=== PATIENT | male | born 1980 | race Caucasian/White ===

== ENCOUNTER 2016-12-06 14:01 | Emergency (ER) | payer OTHER ==
--- NOTE | 2016-12-06 15:15 | DIAGNOSTIC IMAGING REPORT ---
PROCEDURE: CT HEAD WITHOUT CONTRAST INDICATION: HEADACHE TECHNIQUE: Axial CT images were acquired through the head. Coronal and sagittal reformations were created. COMPARISON: None. FINDINGS: No intracranial hemorrhage or extraaxial fluid collections. Ventricles are normal in size, shape and position. There is no mass, mass effect or midline shift. The maldonado-white matter differentiation is normal. There is no edema. The calvarium is intact. There is a frontal ethmoid and right maxillary sinusitis. IMPRESSION: 1. Frontal, ethmoid and right maxillary sinusitis. 2. Findings discussed with Dr. Wolff at 03:[address] scans at this facility use dose modulation, iterative reconstruction, and/or weight-based dosing when appropriate to reduce radiation dose to as low as reasonably achievable.
--- NOTE | 2016-12-06 15:23 | ED ORDER SUMMARY ---
..... Patient: GREGG YO OrderSheet [facility] VisitID: [id number] [address] [place] [address] 36y, M Registration Date/Time: 12/06/2016 ORDER SHEET Weight: 77.1 kg (stated) Allergies: Aleve, Toradol, Motrin GENERAL ORDERS: CT Head wo Cont Urgent (14:32 12/06/2016 Elise Sandhu) (Ack 14:34 Jessy) (15:[facility] MEDICATION ORDERS: Acetaminophen PO 1,000 mg (NOW) (14:32 12/06/2016 Elise Sandhu) (Ack 14:41 [facility] (14:[facility] IV FLUIDS: ORDER SHEET NOTES: [Electronically signed by Randy Wolff Dr. (15:28 12/06/2016)] [Electronically signed by Zahra Cabrera (16:35 12/06/2016)] [Electronically locked/signed by Zahra Cabrera (16:35 12/06/2016)]
--- NOTE | 2016-12-06 15:23 | ED CLINICAL REPORT ---
Clinical Report - Physicians/Mid Levels [facility] [address] [place] [address] 12/06/2016 14:05 Patient: GREGG YO Time Seen: 14:10; initial patient contact. Arrived- By private vehicle. Historian- patient. HISTORY OF PRESENT ILLNESS Is still present and worsening. (worse since 4 days ago). Chief Complaint: HEADACHE. This started about 2 years ago. It was gradual in onset and has been intermittent. It is described as similar to previous headaches, throbbing and sharp. Located in the frontal region. No neck pain. Not located in the facial region. At its maximum, severity described as moderate. When seen in the E.D., severity described as moderate. Modifying factors: relieved by nothing. Not worsened by anything. No preceding symptoms, blurred vision, photophobia, associated nausea or numbness. No vomiting. Similar symptoms previously: Many times. Recent medical care: The patient was seen recently in a clinic (Took Azithromycin Tri pack, temporary relief.). REVIEW OF SYSTEMS No fever, ear pain or sore throat. He has had sinus pressure. All systems otherwise negative, except as recorded above. PAST HISTORY Back Pain. Headache. Medications: Tylenol Oral. Allergies: Aleve. Motrin. Toradol. SOCIAL HISTORY Never smoker. No alcohol use or drug use. ADDITIONAL NOTES The nursing notes have been reviewed. PHYSICAL EXAM Vital Signs: 12/06/2016 14:17 BP: 145/90. HR: 90. RR: 14. O2 saturation: 99%. Temp: 97.8 F. Have been reviewed. Hypertensive. Heart rate normal. Respiratory rate normal. Temperature normal. Oxygen saturation normal. Appearance: Alert. No acute distress. Head: Tenderness present to percussion/palpation of the sinuses: moderate right and left frontal tenderness. Eyes: Pupils equal, round and reactive to light. Eyes normal inspection. No photophobia. ENT: Ears normal. Pharynx normal. Neck: Normal inspection. Neck supple. Respiratory: No respiratory distress. Breath sounds normal. Neuro: Oriented X 3. Alert. Mood/affect normal. Speech normal. LABS, X-RAYS, AND EKG CT Head: (1. Frontal, ethmoid and right maxillary sinusitis.). Head CT performed without contrast. The study was independently viewed by me, interpreted by the radiologist and discussed with the radiologist. Prior studies were not available for comparison. PROGRESS AND PROCEDURES Disposition: Discharged home in good condition. Condition: good. CLINICAL IMPRESSION Chronic maxillary, ethmoidal and frontal sinusitis INSTRUCTIONS Prescription Medications: Augmentin 500 mg: take 1 tablet orally every 12 hours. No refill. Substitution is permissible. (for 21 days Disp # 42) Follow-up: Screening today revealed the patient's blood pressure to be in the hypertensive range. The patient should follow up with a primary care provider for blood pressure management. Follow-up with: Sergei Paredes MD, ENT, , [address], , [place], [id number] Follow up in about one week. Call for an appointment. (Electronically signed by Randy Wolff Dr. 12/06/2016 15:28)
--- NOTE | 2016-12-06 15:23 | ED CLINICAL REPORT ---
Clinical Report - Physicians/Mid Levels [facility] [address] [place] [address] 12/06/2016 14:05 Patient: GREGG YO Time Seen: 14:10; initial patient contact. Arrived- By private vehicle. Historian- patient. HISTORY OF PRESENT ILLNESS Is still present and worsening. (worse since 4 days ago). Chief Complaint: HEADACHE. This started about 2 years ago. It was gradual in onset and has been intermittent. It is described as similar to previous headaches, throbbing and sharp. Located in the frontal region. No neck pain. Not located in the facial region. At its maximum, severity described as moderate. When seen in the E.D., severity described as moderate. Modifying factors: relieved by nothing. Not worsened by anything. No preceding symptoms, blurred vision, photophobia, associated nausea or numbness. No vomiting. Similar symptoms previously: Many times. Recent medical care: The patient was seen recently in a clinic (Took Azithromycin Tri pack, temporary relief.). REVIEW OF SYSTEMS No fever, ear pain or sore throat. He has had sinus pressure. All systems otherwise negative, except as recorded above. PAST HISTORY Back Pain. Headache. Medications: Tylenol Oral. Allergies: Aleve. Motrin. Toradol. SOCIAL HISTORY Never smoker. No alcohol use or drug use. ADDITIONAL NOTES The nursing notes have been reviewed. PHYSICAL EXAM Vital Signs: 12/06/2016 14:17 BP: 145/90. HR: 90. RR: 14. O2 saturation: 99%. Temp: 97.8 F. Have been reviewed. Hypertensive. Heart rate normal. Respiratory rate normal. Temperature normal. Oxygen saturation normal. Appearance: Alert. No acute distress. Head: Tenderness present to percussion/palpation of the sinuses: moderate right and left frontal tenderness. Eyes: Pupils equal, round and reactive to light. Eyes normal inspection. No photophobia. ENT: Ears normal. Pharynx normal. Neck: Normal inspection. Neck supple. Respiratory: No respiratory distress. Breath sounds normal. Neuro: Oriented X 3. Alert. Mood/affect normal. Speech normal. LABS, X-RAYS, AND EKG CT Head: (1. Frontal, ethmoid and right maxillary sinusitis.). Head CT performed without contrast. The study was independently viewed by me, interpreted by the radiologist and discussed with the radiologist. Prior studies were not available for comparison. PROGRESS AND PROCEDURES Disposition: Discharged home in good condition. Condition: good. CLINICAL IMPRESSION Chronic maxillary, ethmoidal and frontal sinusitis INSTRUCTIONS Prescription Medications: Augmentin 500 mg: take 1 tablet orally every 12 hours. No refill. Substitution is permissible. (for 21 days Disp # 42) Follow-up: Screening today revealed the patient's blood pressure to be in the hypertensive range. The patient should follow up with a primary care provider for blood pressure management. Follow-up with: Sergei Paredes MD, ENT, , [address], , [place], [id number] Follow up in about one week. Call for an appointment. (Electronically signed by Randy Wolff Dr. 12/06/2016 15:28)
--- NOTE | 2016-12-06 15:23 | ED NURSING NOTES ---
Clinical Report - Nurses [facility] [address] [place] [address] 12/06/2016 14:05 Patient: GREGG YO TRIAGE Triage time 14:Dec 06 2016. Acuity: LEVEL 4. Chief Complaint: HEADACHE. 14:17 12/06/16. Alert. No acute distress. ( Pain at worst 10/10). SEPSIS SCREEN: Sepsis Screen. Negative (no infection suspected/documented). CASS COMA SCORE: [place] Coma Scale: 15- eyes open spontaneously (4); best verbal response- oriented x 4 (5); best motor response- obeys commands (6). --14:17 Zahra Cabrera 14:17 12/06/16. BP: 145/90. HR: 90. RR: 14. O2 saturation: 99%. Temp: 97.8 F. Pain level now 8/10. --14:17 Zahra Cabrera 14:19 12/06/16. --14:19 Zahra Cabrera. Weight: 77.1 kg stated. Height/Length: 74 inches Per Patient. BMI: 21.8. --14:17 Zahra Cabrera. Medications Tylenol Oral. --14:13 Zahra Cabrera. Medication/allergy information source: the patient. --14:17 Zahra Cabrera. Allergies Aleve. --14:12 Zahra Cabrera Toradol. --14:13 Zahra Cabrera Motrin. --14:13 Zahra Cabrera. History Arrived by private vehicle. Historian: patient. Accompanied by spouse. No primary care physician. This started 2-3 weeks ago. ( Pt reports headaches that are getting more frequent. Has been having them over the past 3 years, but have gotten much worse and more frequent. Pain comes and goes, from 6/10-10/10 pain. Pt reports blurred vision on the worst parts of the headache, denies current blurred vision. Denies nausea/vomiting. Minimal nasal congestion.). He has had sinus pain. No nausea, vomiting, weakness, numbness or fever. 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 PAST MEDICAL HX: Headaches. No history of diabetes mellitus or hypertension. No history of head injury. Immunizations: up-to-date. SOCIAL HX: Never smoker. No alcohol use or drug use. No recent travel. No known contact with a sick individual. FALL RISK ASSESSMENT: Fall risk assessment completed. No fall risk identified. NUTRITIONAL RISK ASSESSMENT: The nutritional risk assessment revealed no deficiencies. FUNCTIONAL ASSESSMENT: Functional assessment: no impairments noted. LEARNING NEEDS ASSESSMENT: The learning needs assessment revealed no barriers. SKIN INTEGRITY ASSESSMENT: Skin integrity risk assessment completed. No skin integrity risk identified. --14:17 Zahra Cabrera ( Pt was seen at [facility] clinic and given a Z-pack for possible sinus infection. Hasn't helped.). --14:19 Zahra Cabrera. PROBLEMS: Back Pain. Headache. --14:14 Zahra Cabrera. Assessment The patient states feels the same. --14:17 Zahra Cabrera. Interventions ID band on patient. --14:17 Zahra Cabrera. PHYSICAL ASSESSMENT 14:18 12/06/16. Ambulatory to room. GENERAL / NEURO / PSYCH: Alert. Oriented X 4. Appears in no acute distress. Speech within normal limits. Pupillary exam: Pupils are equal, round, and reactive to light. Right pupil 3mm, round and briskly reactive to light directly. Left pupil: 3mm, round and briskly reactive to light directly. HEENT: No facial asymmetry noted. Pupils equal, round and reactive to light. No signs of head trauma. RESPIRATORY: Respirations not labored. CVS: Capillary refill less than 2 seconds. GI / : Abdomen soft and nontender. SKIN: Skin is warm and dry. --14:18 Zahra Cabrera. NURSING PROGRESS NOTES 14:18 12/06/16. The plan of care for this patient has been created. Patient gowned. Head of bed elevated. Reassurance given. Lights dimmed. Two patient identifiers checked. Call light placed in reach. Side rails up x 1. Bed placed in lowest position. Brakes of bed on. Patient ready for evaluation- chart flagged and ED physician and PA notified. --14:18 Zahra Cabrera 14:43 12/06/2016 Acetaminophen (APAP) PO Tablets 1000 mg given. Allergies verified and confirmed 5 rights. --14:43 Zahra Cabrera. DISPOSITION / DISCHARGE 15:41 12/06/16. Departure time: 15:41 Dec 06 2016. Condition at departure: improved. The goals identified in the patient's plan of care were met. No learning barriers present. Discharge instructions provided and reviewed with the patient. Reviewed warnings (Patient verbalized awareness of warning s/sx listed in dc paperwork.). Reviewed medication(s) side effects, precautions, dosing and course information. Prescription(s) given to the patient (augmentin.). Treatments reviewed. Reviewed referral to an ear, nose, and throat specialist (scanner supervisor) for followup. Patient verbalized understanding. Written instructions provided in Korean. The patient was discharged by the physician. He was discharged home and accompanied by spouse. He left the Emergency Department ambulatory and via private vehicle. Spouse driving. FALL RISK ASSESSMENT: Fall risk assessment completed. No fall risk identified. --15:41 Zahra Cabrera 15:39 12/06/16. BP: 156/91. HR: 82. RR: 15. O2 saturation: 99% on room air. Temp: 98.2 F. Pain level now: 01/10. --15:41 Zahra Cabrera. Locked/Released at 12/06/2016 16:35 by Zahra Cabrera,
--- NOTE | 2016-12-06 15:23 | ED NURSING NOTES ---
Clinical Report - Nurses [facility] [address] [place] [address] 12/06/2016 14:05 Patient: GREGG YO TRIAGE Triage time 14:Dec 06 2016. Acuity: LEVEL 4. Chief Complaint: HEADACHE. 14:17 12/06/16. Alert. No acute distress. ( Pain at worst 10/10). SEPSIS SCREEN: Sepsis Screen. Negative (no infection suspected/documented). CASS COMA SCORE: [place] Coma Scale: 15- eyes open spontaneously (4); best verbal response- oriented x 4 (5); best motor response- obeys commands (6). --14:17 Zahra Cabrera 14:17 12/06/16. BP: 145/90. HR: 90. RR: 14. O2 saturation: 99%. Temp: 97.8 F. Pain level now 8/10. --14:17 Zahra Cabrera 14:19 12/06/16. --14:19 Zahra Cabrera. Weight: 77.1 kg stated. Height/Length: 74 inches Per Patient. BMI: 21.8. --14:17 Zahra Cabrera. Medications Tylenol Oral. --14:13 Zahra Cabrera. Medication/allergy information source: the patient. --14:17 Zahra Cabrera. Allergies Aleve. --14:12 Zahra Cabrera Toradol. --14:13 Zahra Cabrera Motrin. --14:13 Zahra Cbarera. History Arrived by private vehicle. Historian: patient. Accompanied by spouse. No primary care physician. This started 2-3 weeks ago. ( Pt reports headaches that are getting more frequent. Has been having them over the past 3 years, but have gotten much worse and more frequent. Pain comes and goes, from 6/10-10/10 pain. Pt reports blurred vision on the worst parts of the headache, denies current blurred vision. Denies nausea/vomiting. Minimal nasal congestion.). He has had sinus pain. No nausea, vomiting, weakness, numbness or fever. 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 PAST MEDICAL HX: Headaches. No history of diabetes mellitus or hypertension. No history of head injury. Immunizations: up-to-date. SOCIAL HX: Never smoker. No alcohol use or drug use. No recent travel. No known contact with a sick individual. FALL RISK ASSESSMENT: Fall risk assessment completed. No fall risk identified. NUTRITIONAL RISK ASSESSMENT: The nutritional risk assessment revealed no deficiencies. FUNCTIONAL ASSESSMENT: Functional assessment: no impairments noted. LEARNING NEEDS ASSESSMENT: The learning needs assessment revealed no barriers. SKIN INTEGRITY ASSESSMENT: Skin integrity risk assessment completed. No skin integrity risk identified. --14:17 Zahra Cabrera ( Pt was seen at [facility] clinic and given a Z-pack for possible sinus infection. Hasn't helped.). --14:19 Zahra Cabrera. PROBLEMS: Back Pain. Headache. --14:14 Zahra Cabrera. Assessment The patient states feels the same. --14:17 Zahra Cabrera. Interventions ID band on patient. --14:17 Zahra Cabrera. PHYSICAL ASSESSMENT 14:18 12/06/16. Ambulatory to room. GENERAL / NEURO / PSYCH: Alert. Oriented X 4. Appears in no acute distress. Speech within normal limits. Pupillary exam: Pupils are equal, round, and reactive to light. Right pupil 3mm, round and briskly reactive to light directly. Left pupil: 3mm, round and briskly reactive to light directly. HEENT: No facial asymmetry noted. Pupils equal, round and reactive to light. No signs of head trauma. RESPIRATORY: Respirations not labored. CVS: Capillary refill less than 2 seconds. GI / : Abdomen soft and nontender. SKIN: Skin is warm and dry. --14:18 Zahra Cabrera. NURSING PROGRESS NOTES 14:18 12/06/16. The plan of care for this patient has been created. Patient gowned. Head of bed elevated. Reassurance given. Lights dimmed. Two patient identifiers checked. Call light placed in reach. Side rails up x 1. Bed placed in lowest position. Brakes of bed on. Patient ready for evaluation- chart flagged and ED physician and PA notified. --14:18 Zahra Cabrera 14:43 12/06/2016 Acetaminophen (APAP) PO Tablets 1000 mg given. Allergies verified and confirmed 5 rights. --14:43 Zahra Cabrera. DISPOSITION / DISCHARGE 15:41 12/06/16. Departure time: 15:41 Dec 06 2016. Condition at departure: improved. The goals identified in the patient's plan of care were met. No learning barriers present. Discharge instructions provided and reviewed with the patient. Reviewed warnings (Patient verbalized awareness of warning s/sx listed in dc paperwork.). Reviewed medication(s) side effects, precautions, dosing and course information. Prescription(s) given to the patient (augmentin.). Treatments reviewed. Reviewed referral to an ear, nose, and throat specialist (lead systems developer) for followup. Patient verbalized understanding. Written instructions provided in Wolof. The patient was discharged by the physician. He was discharged home and accompanied by spouse. He left the Emergency Department ambulatory and via private vehicle. Spouse driving. FALL RISK ASSESSMENT: Fall risk assessment completed. No fall risk identified. --15:41 Zahra Cabrera 15:39 12/06/16. BP: 156/91. HR: 82. RR: 15. O2 saturation: 99% on room air. Temp: 98.2 F. Pain level now: 01/10. --15:41 Zahra Cabrera. Locked/Released at 12/06/2016 16:35 by Zahra Cabrera,
--- NOTE | 2016-12-06 15:23 | ED ORDER SUMMARY ---
..... Patient: GREGG YO OrderSheet [facility] VisitID: [id number] [address] [place] [address] 36y, M Registration Date/Time: 12/06/2016 ORDER SHEET Weight: 77.1 kg (stated) Allergies: Aleve, Toradol, Motrin GENERAL ORDERS: CT Head wo Cont Urgent (14:32 12/06/2016 Elise Sandhu) (Ack 14:34 Jessy) [facility] [place] MEDICATION ORDERS: Acetaminophen PO 1,000 mg (NOW) (14:32 12/06/2016 Elise Sandhu) ([facility]ck 14:[facility] [place] (14:[facility] IV FLUIDS: ORDER SHEET NOTES: [Electronically signed by Randy Wolff Dr. (15:28 12/06/2016)] [Electronically signed by Zahra Cabrera (16:35 12/06/2016)] [Electronically locked/signed by Zahra Cabrera (16:35 12/06/2016)]
--- NOTE | 2016-12-06 16:36 | ED DISCHARGE INSTRUCTIONS ---
Patient: GREGG YO General Instructions [facility] VisitID: [id number] [address] [place] [address] 36y, M Registration Date/Time: 12/06/2016 Chronic maxillary, ethmoidal and frontal sinusitis INSTRUCTIONS Prescription Medications: Augmentin 500 mg: take 1 tablet orally every 12 hours. No refill. Substitution is permissible. (for 21 days Disp # 42) Follow-up: Screening today revealed the patient's blood pressure to be in the hypertensive range. The patient should follow up with a primary care provider for blood pressure management. Follow-up with: Sergei Paredes MD, ENT, , [address], , [place], [id number] Follow up in about one week. Call for an appointment. ADDITIONAL INFORMATION Sinusitis [Abx Tx] The sinuses are air-filled spaces within the bones of the face. They connect to the inside of the nose. Sinusitis is an inflammation of the tissue lining the sinus cavity. Sinus inflammation can occur during a cold or hay-fever (allergies to pollens and other particles in the air) and cause symptoms of sinus congestion and fullness. A sinus infection causes fever, headache and facial pain. There is usually green or yellow drainage from the nose or into the back of the throat (post-nasal drip). Antibiotics are prescribed to treat this condition. Home Care: Drink plenty of water, hot tea, and other liquids to stay well hydrated. This thins the mucus and promotes sinus drainage. Apply heat to the painful areas of the face. Use a towel soaked in hot water. Or, engineer system administrator the shower and direct the hot spray onto your face. This is a good way to inhale warm water vapor and get heat on your face at the same time. (Cover your mouth and nose with your hands so you can still breathe as you do this.) Use a vaporizer with products such as Vicks VapoRub (contains menthol) at night. Suck on peppermint, menthol or eucalyptus hard candies during the day. An expectorant containing guaifenesin (such as Robitussin), helps to thin the mucus and promote drainage from the sinuses. Jzik-vve-vweotpl decongestants may be used unless a similar medicine was prescribed. Nasal sprays work the fastest. Use one that contains phenylephrine (Rock-synephrine, Sinex and others) or oxymetazoline (Afrin). First blow the nose gently to remove mucus, then apply the drops. Do not use these medicines more often than directed on the label or for more than three days or symptoms may worsen. You may also use tablets containing pseudoephedrine (Sudafed). Many sinus remedies combine ingredients, which may increase side effects. Read the labels or ask the pharmacist for help. NOTE: Persons with high blood pressure should not use decongestants. They can raise blood pressure. Antihistamines are useful if allergies are a cause of your sinusitis. The mildest one is chlorpheniramine (available without a prescription). The dose for adults is 8-12mg three times a day. [NOTE: Do not use chlorpheniramine if you have glaucoma or if you are a man with trouble urinating due to an enlarged prostate.] Claritin (loratidine) is an antihistamine that causes less drowsiness and is a good alternative for daytime use. Do not use nasal rinses or irrigation during an acute sinus infection, unless advised by your doctor. Rinsing may spread the infection to other sinuses. You may use acetaminophen (Tylenol) or ibuprofen (Motrin, Advil) to control pain, unless another pain medicine was prescribed. [ NOTE: If you have chronic liver or kidney disease or ever had a stomach ulcer, talk with your doctor before using these medicines.] (Aspirin should never be used in anyone under 18 years of age who is ill with a fever. It may cause severe liver damage.) Finish the full course, even if you are feeling better after a few days. Follow Up with your doctor or this facility in one week or as instructed by our staff if not improving. Get Prompt Medical Attention if any of the following occur: Facial pain or headache becomes more severe Stiff neck Unusual drowsiness or confusion, or not acting like your normal self Swelling of the forehead or eyelids Vision problems including blurred or double vision Fever of 100.4F (38C) or higher, or as directed by your healthcare provider Seizure Amoxicillin Trihydrate, Clavulanate Potassium Oral tablet What is this medicine? AMOXICILLIN; CLAVULANIC ACID (a mox i DILCIA in; JARED vargas dirk ic id) is a penicillin antibiotic. It is used to treat certain kinds of bacterial infections. It will not work for colds, flu, or other viral infections. How should I use this medicine? Take this medicine by mouth with a full glass of water. Follow the directions on the prescription label. Take at the start of a meal. Do not crush or chew. If the tablet has a score line, you may cut it in half at the score line for easier swallowing. Take your medicine at regular intervals. Do not take your medicine more often than directed. Take all of your medicine as directed even if you think you are better. Do not skip doses or stop your medicine early. Talk to your sawmill tally clerk regarding the use of this medicine in children. Special care may be needed. What side effects may I notice from receiving this medicine? Side effects that you should report to your doctor or health career services officer as soon as possible: allergic reactions like skin rash, itching or hives, swelling of the face, lips, or tongue breathing problems dark urine fever or chills, sore throat redness, blistering, peeling or loosening of the skin, including inside the mouth seizures trouble passing urine or change in the amount of urine unusual bleeding, bruising unusually weak or tired white patches or sores in the mouth or throat Side effects that usually do not require medical attention (report to your doctor or health career services officer if they continue or are bothersome): diarrhea dizziness headache nausea, vomiting stomach upset vaginal or anal irritation What may interact with this medicine? allopurinol anticoagulants control pills methotrexate probenecid What if I miss a dose? If you miss a dose, take it as soon as you can. If it is almost time for your next dose, take only that dose. Do not take double or extra doses. Where should I keep my medicine? Keep out of the reach of children. Store at room temperature below 25 degrees C (77 degrees F). Keep container tightly closed. Throw away any unused medicine after the expiration date. What should I tell my health care provider before I take this medicine? They need to know if you have any of these conditions: bowel disease, like colitis kidney disease liver disease mononucleosis an unusual or allergic reaction to amoxicillin, penicillin, cephalosporin, other antibiotics, clavulanic acid, other medicines, foods, dyes, or preservatives or trying to get breast-feeding What should I watch for while using this medicine? Tell your doctor or health career services officer if your symptoms do not improve. Do not treat diarrhea with over the counter products. Contact your doctor if you have diarrhea that lasts more than 2 days or if it is severe and watery. If you have diabetes, you may get a false-positive result for sugar in your urine. Check with your doctor or health career services officer. control pills may not work properly while you are taking this medicine. Talk to your doctor about using an extra method of control. You have been given the following additional information: Sinusitis, Abx Tx Amoxicillin Trihydrate, Clavulanate Potassium Oral tablet (Electronically signed by Randy Wolff Dr. 12/06/2016 15:28)
--- NOTE | 2016-12-06 16:36 | ED MAR SUMMARY ---
..... Medication Administration Record [address] [place] [address] Patient: GREGG YO Visit ID: [id number] 36y, M Weight: 77.1 kg Height/Length: 74 in BMI: 21.8 ALLERGIES: Motrin, Toradol, Aleve Given 14:43 12/06/2016 Zahra Cabrera, Medication Administered: ACETAMINOPHEN [PO] (APAP), Dose: 1000 mg Tablets PO. Medication Ordered: Acetaminophen PO 1,000 mg (NOW).
--- NOTE | 2016-12-06 16:36 | ED DISCHARGE INSTRUCTIONS ---
Patient: GREGG YO General Instructions [facility] VisitID: [id number] [address] [place] [address] 36y, M Registration Date/Time: 12/06/2016 Chronic maxillary, ethmoidal and frontal sinusitis INSTRUCTIONS Prescription Medications: Augmentin 500 mg: take 1 tablet orally every 12 hours. No refill. Substitution is permissible. (for 21 days Disp # 42) Follow-up: Screening today revealed the patient's blood pressure to be in the hypertensive range. The patient should follow up with a primary care provider for blood pressure management. Follow-up with: Sergei Paredes MD, ENT, , [address], , [place], [id number] Follow up in about one week. Call for an appointment. ADDITIONAL INFORMATION Sinusitis [Abx Tx] The sinuses are air-filled spaces within the bones of the face. They connect to the inside of the nose. Sinusitis is an inflammation of the tissue lining the sinus cavity. Sinus inflammation can occur during a cold or hay-fever (allergies to pollens and other particles in the air) and cause symptoms of sinus congestion and fullness. A sinus infection causes fever, headache and facial pain. There is usually green or yellow drainage from the nose or into the back of the throat (post-nasal drip). Antibiotics are prescribed to treat this condition. Home Care: Drink plenty of water, hot tea, and other liquids to stay well hydrated. This thins the mucus and promotes sinus drainage. Apply heat to the painful areas of the face. Use a towel soaked in hot water. Or, mica machine operator the shower and direct the hot spray onto your face. This is a good way to inhale warm water vapor and get heat on your face at the same time. (Cover your mouth and nose with your hands so you can still breathe as you do this.) Use a vaporizer with products such as Vicks VapoRub (contains menthol) at night. Suck on peppermint, menthol or eucalyptus hard candies during the day. An expectorant containing guaifenesin (such as Robitussin), helps to thin the mucus and promote drainage from the sinuses. [id number]-[id number] decongestants may be used unless a similar medicine was prescribed. Nasal sprays work the fastest. Use one that contains phenylephrine (Orck-synephrine, Sinex and others) or oxymetazoline (Afrin). First blow the nose gently to remove mucus, then apply the drops. Do not use these medicines more often than directed on the label or for more than three days or symptoms may worsen. You may also use tablets containing pseudoephedrine (Sudafed). Many sinus remedies combine ingredients, which may increase side effects. Read the labels or ask the pharmacist for help. NOTE: Persons with high blood pressure should not use decongestants. They can raise blood pressure. Antihistamines are useful if allergies are a cause of your sinusitis. The mildest one is chlorpheniramine (available without a prescription). The dose for adults is 8-12mg three times a day. [NOTE: Do not use chlorpheniramine if you have glaucoma or if you are a man with trouble urinating due to an enlarged prostate.] Claritin (loratidine) is an antihistamine that causes less drowsiness and is a good alternative for daytime use. Do not use nasal rinses or irrigation during an acute sinus infection, unless advised by your doctor. Rinsing may spread the infection to other sinuses. You may use acetaminophen (Tylenol) or ibuprofen (Motrin, Advil) to control pain, unless another pain medicine was prescribed. [ NOTE: If you have chronic liver or kidney disease or ever had a stomach ulcer, talk with your doctor before using these medicines.] (Aspirin should never be used in anyone under 18 years of age who is ill with a fever. It may cause severe liver damage.) Finish the full course, even if you are feeling better after a few days. Follow Up with your doctor or this facility in one week or as instructed by our staff if not improving. Get Prompt Medical Attention if any of the following occur: Facial pain or headache becomes more severe Stiff neck Unusual drowsiness or confusion, or not acting like your normal self Swelling of the forehead or eyelids Vision problems including blurred or double vision Fever of 100.4F (38C) or higher, or as directed by your healthcare provider Seizure Amoxicillin Trihydrate, Clavulanate Potassium Oral tablet What is this medicine? AMOXICILLIN; CLAVULANIC ACID (a mox i DILCIA in; JARED vargas dirk ic id) is a penicillin antibiotic. It is used to treat certain kinds of bacterial infections. It will not work for colds, flu, or other viral infections. How should I use this medicine? Take this medicine by mouth with a full glass of water. Follow the directions on the prescription label. Take at the start of a meal. Do not crush or chew. If the tablet has a score line, you may cut it in half at the score line for easier swallowing. Take your medicine at regular intervals. Do not take your medicine more often than directed. Take all of your medicine as directed even if you think you are better. Do not skip doses or stop your medicine early. Talk to your senior dynamics crm developer regarding the use of this medicine in children. Special care may be needed. What side effects may I notice from receiving this medicine? Side effects that you should report to your doctor or health hemodialysis patient care specialist as soon as possible: allergic reactions like skin rash, itching or hives, swelling of the face, lips, or tongue breathing problems dark urine fever or chills, sore throat redness, blistering, peeling or loosening of the skin, including inside the mouth seizures trouble passing urine or change in the amount of urine unusual bleeding, bruising unusually weak or tired white patches or sores in the mouth or throat Side effects that usually do not require medical attention (report to your doctor or health hemodialysis patient care specialist if they continue or are bothersome): diarrhea dizziness headache nausea, vomiting stomach upset vaginal or anal irritation What may interact with this medicine? allopurinol anticoagulants control pills methotrexate probenecid What if I miss a dose? If you miss a dose, take it as soon as you can. If it is almost time for your next dose, take only that dose. Do not take double or extra doses. Where should I keep my medicine? Keep out of the reach of children. Store at room temperature below 25 degrees C (77 degrees F). Keep container tightly closed. Throw away any unused medicine after the expiration date. What should I tell my health care provider before I take this medicine? They need to know if you have any of these conditions: bowel disease, like colitis kidney disease liver disease mononucleosis an unusual or allergic reaction to amoxicillin, penicillin, cephalosporin, other antibiotics, clavulanic acid, other medicines, foods, dyes, or preservatives or trying to get breast-feeding What should I watch for while using this medicine? Tell your doctor or health hemodialysis patient care specialist if your symptoms do not improve. Do not treat diarrhea with over the counter products. Contact your doctor if you have diarrhea that lasts more than 2 days or if it is severe and watery. If you have diabetes, you may get a false-positive result for sugar in your urine. Check with your doctor or health hemodialysis patient care specialist. control pills may not work properly while you are taking this medicine. Talk to your doctor about using an extra method of control. You have been given the following additional information: Sinusitis, Abx Tx Amoxicillin Trihydrate, Clavulanate Potassium Oral tablet (Electronically signed by Randy Wolff Dr. 12/06/2016 15:28)
--- NOTE | 2016-12-06 16:36 | ED MED RECONCILIATION SUMMARY ---
Patient: GREGG YO Medication Reconciliation Report [facility] VisitID: [id number] [address] [place] [address] 36y, M Registration Date/Time: 12/06/2016 Weight: 77.1 kg Height/Length: 74 in. BMI: 21.8 ALLERGIES: Aleve, Motrin, Toradol The patient's Home Medications are listed below: THE FOLLOWING MEDICATIONS NEED TO BE RECONCILED: Tylenol Oral The source(s) of the original Home Medication information: patient The following Medications were given to the patient in the Emergency Department: Acetaminophen [PO] PO 1000 mg, administered: 12/06/2016 2:43:00 PM The following Medications were prescribed to the patient: Augmentin 500 mg: take 1 tablet orally every 12 hours. No refill. Substitution is permissible.(for 21 days Disp # 42) -- Randy Wolff Dr.
--- NOTE | 2016-12-06 16:36 | ED MED RECONCILIATION SUMMARY ---
Patient: GREGG YO Medication Reconciliation Report [facility] VisitID: [id number] [address] [place] [address] 36y, M Registration Date/Time: 12/06/2016 Weight: 77.1 kg Height/Length: 74 in. BMI: 21.8 ALLERGIES: Aleve, Motrin, Toradol The patient's Home Medications are listed below: THE FOLLOWING MEDICATIONS NEED TO BE RECONCILED: Tylenol Oral The source(s) of the original Home Medication information: patient The following Medications were given to the patient in the Emergency Department: Acetaminophen [PO] PO 1000 mg, administered: 12/06/2016 2:43:00 PM The following Medications were prescribed to the patient: Augmentin 500 mg: take 1 tablet orally every 12 hours. No refill. Substitution is permissible.(for 21 days Disp # 42) -- Randy Wolff Dr.
--- NOTE | 2016-12-06 16:36 | ED MAR SUMMARY ---
..... Medication Administration Record [address] [place] [address] Patient: GREGG YO Visit ID: [id number] 36y, M Weight: 77.1 kg Height/Length: 74 in BMI: 21.8 ALLERGIES: Motrin, Toradol, Aleve Given 14:43 12/06/2016 Zahra Cabrera, Medication Administered: ACETAMINOPHEN [PO] (APAP), Dose: 1000 mg Tablets PO. Medication Ordered: Acetaminophen PO 1,000 mg (NOW).
== END 2016-12-06 15:41 | disposition home or self-care (01) ==
LOC: ED SRH 14:01
DX: J32.1 Chronic frontal sinusitis (principal); J32.0 Chronic maxillary sinusitis; J32.2 Chronic ethmoidal sinusitis